=== PATIENT | female | born 1955 | race Caucasian/White ===

== ENCOUNTER → 2020-06-02 | Day surgery (SDC) | payer OTHER ==
[~2020-06-02] MED LIST: DESYREL50 MG PO; FISH OIL 1,0001 EACH PO; GUANFACINE HCL2 MG PO; SIMVASTATIN20 MG PO; TURMERIC500 M1 PO; VITAMIN D310 MC1 PO
[2020-06-02 08:17] LABS: HCT 47.3 % (37.0-47.0); HGB 15.7 g/dl (12.5-16.0); MCHC 33.2 g/dL (32.0-36.0); MCV 96.3 fL (78.0-100.0); MPV 10.7 fL (6.0-9.5); RBC 4.91 M/uL (4.20-5.40); RDW 12.9 % (11.5-14.0); WBC 8.5 K/uL (4.0-10.5)
[2020-06-02 08:32] LABS: ALBUMIN 3.9 g/dL (3.4-5.0); BILIRUBIN - TOTAL 0.9 mg/dL (0.2-1.0); BUN/CREAT RATIO (CALC) 21.4 RATIO; CREATININE 0.7 mg/dL (0.51-0.95); GLOBULIN (CALCULATION) 3.6 g/dL; POTASSIUM 3.6 mmol/L (3.5-5.1); TOTAL PROTEIN 7.5 g/dL (6.4-8.2)
== END | disposition home or self-care (01) ==
LOC: FAS 07:21
PROVIDERS: Surgery
DX: Z12.11 Encounter for screening for malignant neoplasm of colon (principal); I10 Essential (primary) hypertension; E78.5 Hyperlipidemia, unspecified; E78.00 Pure hypercholesterolemia, unspecified; M19.90 Unspecified osteoarthritis, unspecified site; Z85.3 Personal history of malignant neoplasm of breast; Z90.10 Acquired absence of unspecified breast and nipple; Z98.890 Other specified postprocedural states; Z80.0 Family history of malignant neoplasm of digestive organs; Z82.49 Family history of ischemic heart disease and other diseases of the circulatory system; Z79.899 Other long term (current) drug therapy
CPT/HCPCS: 36415; 80053; J1100; J2250; J2405; J2704; J3010; J7120